=== PATIENT | female | born 1975 | race Hispanic/Latino ===

== ENCOUNTER 2019-05-27 06:58 | Day surgery (SDC) | payer BC ==
[2019-05-26 17:10] VITALS: BP 129/66
[2019-05-26 17:20] LABS: BASOPHILS % (AUTO) 0.3 % (0.0-5.0); EOSINOPHILS % (AUTO) 1.7 % (0.0-8.0); HEMATOCRIT 34.8 % (36-48); LYMPHOCYTES % (AUTO) 33.6 % (21.0-51.0); MEAN CORPUSCULAR HGB CONC 33.6 g/dL (32.0-36.0); MEAN CORPUSCULAR VOLUME 92.1 fL (79-99); MONOCYTES % (AUTO) 4.7 % (3.0-13.0); NEUTROPHILS % (AUTO) 59.7 % (40.0-77.0); NUCLEATED RED BLOOD CELLS 0.1 % (0.0-0.19); PLATELET COUNT (AUTO) 312 K/uL (130-400); RED BLOOD CELL COUNT(AUTO) 3.78 MIL/uL (4.00-5.50); RED CELL DISTRIBUTION WIDTH 12.9 % (11.0-15.5); WHITE BLOOD COUNT (AUTO) 6.1 K/uL (4.8-10.8)
[~2019-05-27] VITALS: Ht 162.6 cm; Wt 73.5 kg
[2019-05-27] VITALS (17 sets, daily range): BP systolic 104–126; BP diastolic 51–74
[~2019-05-27 06:58] MED LIST: CALDOLOR 800MG+NS 250ML 250 ML IV SCH; LACTATED RINGERS 1000ML 1,000 ML IV SCH; LEVO112T7 PO; NORG-1 PO
[2019-05-27] MEDS ORDERED: BUPIVACAINE/PF 0.25% 30ML VIAL IJ ONE (07:49)
[2019-05-27] MEDS ORDERED: LIDOCAINE PF 2% 5ML ABBOJECT ONE (08:33)
[2019-05-27] MEDS ORDERED: ROCURONIUM 10MG/1ML SYR 10 MG/ML ML ONE (08:33)
[2019-05-27] MEDS ORDERED: FENTANYL CITRATE PF 50 MCG/1 ML 2ML VIAL ONE (08:33)
[2019-05-27] MEDS ORDERED: MIDAZOLAM HCL 1 MG/ML 2ML VIAL ONE (08:33)
[2019-05-27] MEDS ORDERED: PROPOFOL 10 MG/ML 20ML VIAL IV ONE (08:33)
[2019-05-27] MEDS ORDERED: ONDANSETRON HCL 4 MG/2 ML VIAL ONE (08:34)
[2019-05-27] MEDS ORDERED: GLYCOPYRROLATE 1 MG/5 ML SYRINGE ONE (10:14)
[2019-05-27] MEDS ORDERED: NEOSTIGMINE 5MG/5ML SYR IV ONE (10:14)
[2019-05-27] MEDS ORDERED: MEPERIDINE-PF 25 MG/ML SYG ONE (10:48)
== END 2019-05-27 12:00 | disposition home or self-care (01) ==
LOC: DAH 06:58
DX: N83.291 Other ovarian cyst, right side (principal); N80.3 Endometriosis of pelvic peritoneum; E03.9 Hypothyroidism, unspecified; Z98.890 Other specified postprocedural states; F15.90 Other stimulant use, unspecified, uncomplicated; Z80.41 Family history of malignant neoplasm of ovary
CPT/HCPCS: 36415; 49322; 58662; 84703; 85025; 86850; 86900; 86901; 96365; A4215; A4351; C1769 ×2; G0168; J1741; J2001; J2175; J2250; J2405; J2704; J2710; J3010; J3490 ×2; J7030; J7120

== ENCOUNTER → 2022-10-30 | Outpatient (CLI) | payer BC ==
[~2022-10-30] MED LIST changes: -CALDOLOR 800MG+NS 250ML 250 ML IV SCH; -LACTATED RINGERS 1000ML 1,000 ML IV SCH
== END | disposition home or self-care (01) ==
LOC: RAH 10:53
PROVIDERS: ATTEND Physician Assistant Medical
DX: Z12.31 Encounter for screening mammogram for malignant neoplasm of breast (principal)
CPT/HCPCS: 77067

== ENCOUNTER → 2024-05-24 | Outpatient (CLI) | payer OTHER ==
[~2024-05-24] MED LIST changes: +IBUP-1493 PO
== END | disposition home or self-care (01) ==
LOC: OIH 11:01
PROVIDERS: ATTEND Family Medicine
DX: Z13.6 Encounter for screening for cardiovascular disorders (principal)
CPT/HCPCS: 75571

== ENCOUNTER → 2024-09-23 | Outpatient (CLI) | payer BC | END | disposition home or self-care (01) | LOC: RAH 08:09 | PROVIDERS: ATTEND Obstetrics & Gynecology | DX: Z12.31 Encounter for screening mammogram for malignant neoplasm of breast (principal); R92.30 Dense breasts, unspecified | CPT/HCPCS: 77067 ==

== ENCOUNTER → 2025-10-11 | Outpatient (CLI) | payer BC ==
--- NOTE | 2025-10-12 13:32 | HMCIMG ---
DIGITAL BILATERAL SCREENING MAMMOGRAM Technique: The digital mammographic examination of both breasts in craniocaudal and mediolateral oblique views along with CAD was obtained. History: This is a 50 years year-old female 3, para3 Ab0. Patient has no family history of breast cancer. Patient has no complaint Reference:Prior mammogram from 09/23/2024 and 10/30/2022 is available.. Breast composition: Breast composition C: The breasts are heterogeneously dense, which may obscure small masses. Finding: The digital mammographic examination of both breasts in craniocaudal and mediolateral oblique view along with CAD demonstrates both breasts to be moderately heterogeneously dense due to fibroglandular stromal elements.. There is no evidence of any dendritic mass, cluster microcalcification or architectural distortion. The retromammary fat appears to be normal. IMPRESSION: Due to moderately heterogeneously nodular dense breast I would recommend a baseline bilateral breast sonogram.. FINAL ASSESSMENT: ACR: BI-RAD -0. Incomplete: need additional imaging evaluation. NOTE: IF A WORK-UP OF THIS PATIENT LEADS TO A BIOPSY, PLEASE FORWARD A COPY OF THE PATHOLOGY REPORT TO OUR OFFICE REQUIRED BY SA EFFECTIVE AUGUST 31, 1994. A NEGATIVE MAMMOGRAM SHOULD NOT PRECLUDE BIOPSY OF A CLINICALLY PALPABLE SUSPICIOUS MASS, 10% OF BREAST CANCERS ARE MAMMOGRAPHICALLY OCCULT. THIS MAMMOGRAPHY FACILITY IS FULLY ACCREDITED BY THE [employer]OD AND [employer]UG [employer] (FDA). THANK YOU FOR THIS REFERRAL.
== END | disposition home or self-care (01) ==
LOC: RAH 13:27
PROVIDERS: ATTEND Obstetrics & Gynecology
DX: Z12.31 Encounter for screening mammogram for malignant neoplasm of breast (principal); R92.333 Mammographic heterogeneous density, bilateral breasts
CPT/HCPCS: 77067

== ENCOUNTER → 2025-10-25 | Outpatient (CLI) | payer BC ==
--- NOTE | 2025-10-26 11:07 | HMCIMG ---
BILATERAL BREAST ULTRASOUND: CLINICAL HISTORY: Follow-up for mammogram from 10/11/2025 with moderately heterogeneously dense breast for baseline bilateral breast sonogram. Finding: Real-time examination of the both breasts demonstrates moderately heterogeneous echotexture throughout both the breasts without evidence of focal solid mass. There is a cyst seen in the left breast at 1:00 measuring 0.7 x 0.3 x 0.8 cm. There are bilateral axillary lymph nodes the largest in the right measures 1.9 x 0.7 x 1.8 cm. The largest in the left measuring 1.6 x 0.7 x 1.6 cm. There is bilateral ductal ectasia. IMPRESSION: Moderately dense breasts. Small cyst seen in the left breast. No solid lesion seen. I would recommend annual mammography with tomography with bilateral breast sonogram. FINAL ASSESSMENT: ACR: BI-RAD- 2. Benign Finding.
== END | disposition home or self-care (01) ==
LOC: RAH 12:58
PROVIDERS: ATTEND Physician Assistant Medical
DX: N60.02 Solitary cyst of left breast (principal); N60.42 Mammary duct ectasia of left breast; N60.41 Mammary duct ectasia of right breast; R92.333 Mammographic heterogeneous density, bilateral breasts